=== PATIENT | male | born 2000 | race Caucasian/White ===

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

== ENCOUNTER 2021-05-16 09:00 | Inpatient (IN) | payer SELFPAY ==
[2021-05-16] MEDS ORDERED: SODIUM CHLORIDE 0.9% 1000 ML INFUS.BAG IV ONE (09:29)
[2021-05-16] MEDS ORDERED: ACETAMINOPHEN 1000 MG/100 ML VIAL IVPB ONE (09:29)
[2021-05-16] MEDS ORDERED: ONDANSETRON 4 MG/2 ML VIAL IVPUSH ONE (09:29)
[2021-05-16] MEDS ORDERED: ACETAMINOPHEN INJECTION 100 ML IVPB ONE (09:43)
[2021-05-16] MEDS ORDERED: ONDANSETRON 4 MG/2 ML VIAL ONE ×2 (09:43→16:11)
[2021-05-16 10:01] LABS: HEMATOCRIT 42.4 % (35.4-49); HEMOGLOBIN 14.5 GM/dl (11.7-16.9); MCH 29.8 pg (25.7-33.7); MCHC 34.2 g/dl (32.0-35.9); MEAN CELL VOLUME 87.3 fl (80-96); MEAN PLT VOLUME 9.3 fl (7.5-11.1); PLATELET COUNT 182 10^3/uL (134-434); RBC 4.86 M/mm3 (4.00-5.60); RDW 12.3 % (11.9-15.9)
[2021-05-16 10:10] LABS: ALBUMIN 4.7 g/dl (3.4-5.0); CALCIUM 9.1 mg/dl (8.5-10); CREATININE 0.8 mg/dl (0.55-1.3); TOT PROT 7.2 g/dl (6.4-8.2)
[2021-05-16 10:12] LABS: ACTIVATED PTT 28.8 SECONDS (25.2-36.5)
[2021-05-16 10:18] LABS: INR 1.29 (0.82-1.09); PROTHROMBIN TIME (PATIENT) 14.3 SEC (10.2-13.0)
[2021-05-16 11:29] LABS: PLATELET ESTIMATE ADEQUATE
[2021-05-16] MEDS ORDERED: PIPERACILLIN/TAZOB 3.375 GM 3.375 GM in DEXTROSE 5%-WATER - 50 ML IVPB ONE (12:12)
[2021-05-16] MEDS ORDERED: PIPERACILLIN/TAZOBACTAM 3.375 GM VIAL IVPB ONE (12:13)
[2021-05-16] MEDS ORDERED: LACTATED RINGERS SOLUTION 1,000 ML IV SCH ×2 (12:30→16:57)
[2021-05-16] MEDS ORDERED: morphine CARPU-JECT 4 MG/1 ML DISP.SYRIN IVPUSH ONE (12:39)
[2021-05-16] MEDS ORDERED: morphine SULFATE 4 MG/ML VIAL ONE (12:41)
[2021-05-16] MEDS ORDERED: ONDANSETRON 4 MG/2 ML VIAL IVPUSH PRN ×2 (13:00→16:57)
[2021-05-16] MEDS ORDERED: MIDAZOLAM HCL 2 MG/2 ML SINGLE DOSE VIAL ONE (14:50)
[2021-05-16] MEDS ORDERED: PROPOFOL 20 ML ONE (14:50)
[2021-05-16] MEDS ORDERED: fentaNYL CITRATE 250 MCG/5 ML VIAL ONE (14:50)
[2021-05-16] MEDS ORDERED: ROCURONIUM BROMIDE 100 MG/10 ML VIAL ONE (14:50)
[2021-05-16] MEDS ORDERED: BUPIVACAINE HCL/PF 0.5% (5MG/ML) 10 ML VIAL ONE (14:55)
[2021-05-16] MEDS ORDERED: BUPIVACAINE HCL/PF 0.5% (5MG/ML) 10 ML VIAL IJ ONE (15:55)
[2021-05-16] MEDS ORDERED: DEXAMETHASONE SOD PHOSPHATE 4 MG/1 ML VIAL ONE (16:11)
[2021-05-16] MEDS ORDERED: NEOSTIGMINE METHYLSULFATE 0.5 MG/ML - 10 ML MDV ONE (16:11)
[2021-05-16] MEDS ORDERED: KETOROLAC TROMETHAMINE 30 MG/1 ML VIAL ONE (16:11)
[2021-05-16] MEDS ORDERED: GLYCOPYRROLATE 0.2 MG/1 ML VIAL ONE (16:11)
[2021-05-16] MEDS ORDERED: oxyCODONE HCL 5 MG TABLET PO PRN ×2 (16:25→16:57)
[2021-05-16] MEDS: SODIUM CHLORIDE 1,000 ML IV SCH (17:39)
[2021-05-16] MEDS ORDERED: PIPERACILLIN/TAZOB 3.375 GM 3.375 GM in DEXTROSE 5%-WATER - 50 ML IVPB SCH (18:00)
[2021-05-16 19:00] VITALS: BMI 22.9
[2021-05-16] MEDS ORDERED: ACETAMINOPHEN 500 MG TABLET (FP) PO PRN ×2 (19:00)
[2021-05-16] MEDS: KETOROLAC TROMETHAMINE 30 MG/1 ML VIAL IVPUSH SCH (23:09)
[2021-05-16] MEDS ORDERED: KETOROLAC TROMETHAMINE 30 MG/1 ML VIAL IVPUSH SCH (23:30)
[2021-05-17] MEDS: SODIUM CHLORIDE 1,000 ML IV SCH ×2 (02:12→09:39)
[2021-05-17] MEDS ORDERED: SODIUM CHLORIDE 250 ML IV STA (08:05)
[2021-05-17] MEDS ORDERED: POTASSIUM CHLORIDE ORAL LIQUID 20 MEQ/15 ML PO ONE (08:30)
[2021-05-17 08:40] LABS: HEMATOCRIT 27.6 % (35.4-49); HEMOGLOBIN 9.4 GM/dL (11.7-16.9); MCH 29.9 pg (25.7-33.7); MCHC 34.1 g/dl (32.0-35.9); MEAN CELL VOLUME 87.7 fl (80-96); MEAN PLT VOLUME 8.8 fl (7.5-11.1); MONO % 9.1 % (3.8-10.2); NEUT % 80.9 % (42.8-82.8); PLATELET COUNT 177 10^3/uL (134-434); RBC 3.15 M/mm3 (4.00-5.60); RDW 13.4 % (11.9-15.9)
[2021-05-17 08:55] LABS: ALBUMIN 2.8 g/dl (3.4-5.0); CALCIUM 8.7 mg/dL (8.5-10.1)
[2021-05-17 08:56] LABS: MAGNESIUM 1.7 mg/dL (1.8-2.4)
[2021-05-17 08:57] LABS: TOT PROT 5.3 g/dl (6.4-8.2)
[2021-05-17 08:59] LABS: CREATININE 0.8 mg/dL (0.55-1.3)
[2021-05-17] MEDS: KETOROLAC TROMETHAMINE 30 MG/1 ML VIAL IVPUSH SCH ×2 (09:36→16:03)
[2021-05-17] MEDS ORDERED: SODIUM CHLORIDE 1,000 ML IV SCH (14:30)
[2021-05-17] MEDS ORDERED: KETOROLAC TROMETHAMINE 30 MG/1 ML VIAL IVPUSH SCH (22:00)
[2021-05-17] MEDS: AMOX TR/POT CLAV 875MG/125MG TABLETS (FP) PO SCH (22:23)
[2021-05-18 07:45] LABS: BASO % 0.4 % (0-2.0); EOS % 0.2 % (0-4.5); HEMATOCRIT 20.8 % (35.4-49); HEMOGLOBIN 7.3 GM/dL (11.7-16.9); LYMPH % 27.6 % (8-40); MCH 30.8 pg (25.7-33.7); MCHC 35.1 g/dl (32.0-35.9); MEAN CELL VOLUME 87.6 fl (80-96); MEAN PLT VOLUME 8.6 fl (7.5-11.1); MONO % 8.4 % (3.8-10.2); NEUT % 63.4 % (42.8-82.8); PLATELET COUNT 145 10^3/uL (134-434); RBC 2.37 M/mm3 (4.00-5.60); RDW 13.5 % (11.9-15.9); WHITE BLOOD COUNT 8.8 K/mm3 (4.0-10.0)
[2021-05-18 08:09] LABS: ALBUMIN 2.5 g/dl (3.4-5.0); CALCIUM 7.5 mg/dL (8.5-10.1)
[2021-05-18 08:10] LABS: BLOOD UREA NITROGEN 7.2 mg/dL (7-18)
[2021-05-18 08:13] LABS: CREATININE 0.7 mg/dL (0.55-1.3)
[2021-05-18 08:14] LABS: BILIRUBIN,TOTAL 0.4 mg/dL (0.2-1); TOT PROT 4.9 g/dl (6.4-8.2)
[2021-05-18] MEDS: AMOX TR/POT CLAV 875MG/125MG TABLETS (FP) PO SCH ×2 (08:59→17:30)
[2021-05-18] MEDS ORDERED: NAPH,MB-DB/K PH,MBDB POWDER PACKET PO ONE (09:12)
[2021-05-18 15:31] VITALS: BP 110/54; PULSE 54; TEMP 98.5
== END 2021-05-18 18:37 | disposition home or self-care (01) | DRG 225 ==
LOC: FER 09:00 → UNDOADMIN 12:32 → FM/S 12:32 → FASUSAT 13:53 → SUATTDRO 13:53 → J2C 15:14 → J8W 19:25 → FASUSAT 05-17 16:12 → J8W 05-17 16:13
PROC: 0DTJ4ZZ Resection of Appendix, Percutaneous Endoscopic Approach (ICD-10-PCS; principal; 2021-05-16 14:30)
DX: K35.80 Unspecified acute appendicitis (principal); F41.9 Anxiety disorder, unspecified; I95.1 Orthostatic hypotension
CPT/HCPCS: 36415; 74177-TC; 80048; 80053; 82962; 83735; 84100; 85025; 85610; 85730; 86850; 86900; 86901; 88304-TC; 94010; 94760; 97116-GP; 97161-GP; 99285-25; C9803; J0131; Q9967; U0003; U0005

== ENCOUNTER 2021-09-23 19:22 | Emergency (ER) | payer SELFPAY ==
[2021-09-23 19:27] VITALS: BP 132/74; PULSE 72; TEMP 98; BMI 22.5
[2021-09-23] MEDS ORDERED: LIDOCAINE HCL 1%, 10 MG/ML (20ML VIAL) ONE (20:24)
[2021-09-23] MEDS ORDERED: cefTRIAXone SODIUM 1 GM VIAL ONE (20:24)
[2021-09-23 20:41] LABS: PH,URINE 6.5 (5.0-8.0); URINE APPEARANCE CLEAR; URINE BILIRUBIN NEGATIVE (NEGATIVE); URINE COLOR YELLOW; URINE GLUCOSE (UA) NEGATIVE (NEGATIVE); URINE KETONE NEGATIVE (NEGATIVE); URINE LEUK ESTERASE NEGATIVE (NEGATIVE); URINE NITRITE NEGATIVE (NEGATIVE); URINE PROTEIN NEGATIVE (NEGATIVE); URINE UROBILINOGEN 0.2 mg/dL (0.2-1.0)
[2021-09-23 22:26] LABS: HIV INTERPRETATION NEGATIVE (NEGATIVE)
[2021-09-25 15:33] LABS: SYPHILIS W/ RPR CONF NON-REACTIVE (NONREACTIVE)
== END 2021-09-23 20:54 | disposition home or self-care (01) ==
LOC: JERFT 19:22
DX: R59.0 Localized enlarged lymph nodes (principal)
CPT/HCPCS: 36415; 81003; 86780; 87086; 87389; 87491; 87591; 99284-25